=== PATIENT | female | born 1975 | race Caucasian/White ===

== ENCOUNTER 2020-01-28 16:33 | Emergency (ER) | payer MEDICARE, SELFPAY ==
[2020-01-28 17:08] VITALS: BP 127/77; PULSE 78; RESP 18; TEMP 36.7; O2SAT 92; BMI 24.7
== END 2020-01-28 19:36 | disposition left against medical advice (07) ==
LOC: ER 16:45
PROVIDERS: Emergency Provider Nurse Practitioner Family
DX: Z53.21 Procedure and treatment not carried out due to patient leaving prior to being seen by health care provider (principal)
CPT/HCPCS: 99281

== ENCOUNTER 2020-02-23 08:48 | Emergency (ER) | payer MEDICARE, MEDICAID, SELFPAY ==
[2020-02-23 08:54] VITALS: BMI 24.7
[2020-02-23 08:57] VITALS: BP 142/85; PULSE 59; RESP 18; TEMP 36.9; O2SAT 96
--- NOTE | 2020-02-23 09:01 | XR_ITS ---
WS: [id number] RIGHT KNEE: 3 VIEW(S) TECHNIQUE: AP, oblique(s) and lateral. HISTORY: knee pain COMPARISON: None available. Suspicious for nondisplaced lateral tibial plateau fracture. No significant joint space narrowing. Large suprapatellar joint effusion and soft tissue edema in the infrapatellar fat pad. XR/XR knee RT 3V* [id number] IMPRESSION: Highly suspicious for nondisplaced lateral tibial plateau fracture with large j oint effusion.
[2020-02-23 09:03] VITALS: O2SAT 97
--- NOTE | 2020-02-23 09:08 | W.ED.EXTPRO ---
HPI - Extremity Problem General: Chief complaint: Extremity Injury, Lower Stated complaint: R KNEE INJURY Time Seen by Provider: 02/23/20 08:50 History of Present Illness: HPI Narrative: 44-year-old female presents with complaint of right knee pain after falling off of the truck yesterday. She said she fell about 3 or 4 feet she denies any other injuries result of the fall she has been partial weightbearing since the fall she is used a crutch and can only done her . She took a Tylenol PM last night which did not seem to help very much. She denies any previous injury or surgery to that knee. MD Complaint: joint swelling and joint pain Onset (ago): day(s) (1) Pain Consistency: constant Location: right and knee Quality: aching and sharp Radiation: none Relieving factors: nothing Exacerbating factors: weight bearing, walking and palpation Associated symptoms: Reports no associated symptoms; Deny chest pain, fever(s) or rash Review of Systems Const: Denies: fever(s), chills, body aches, change in appetite, fatigue or malaise ENMT: Denies: throat pain, ear or mastoid pain, nasal discharge or nasal congestion Card: Denies: chest pain, edema, dyspnea on exertion or orthopnea Resp: Denies: dyspnea, productive cough or non-productive cough GI: Denies: abdominal pain, nausea, vomiting, hematemesis, coffee ground emesis, diarrhea, constipation, bloating, hematochezia or melena : Denies: flank pain, difficulty voiding, dysuria, urinary frequency or urinary urgency Skin/Breast: Denies: rash or pruritus PFSH ED PFSH: Medical History No active medical problems Surgical History History of hysterectomy Social History Smoking and tobacco status: current every day smoker Alcohol intake: never Physical Exam Const: COMMON NORMALS: no acute distress GENERAL APPEARANCE: cooperative and comfortable ORIENTATION/CONSCIOUSNESS: Yes awake, Yes oriented to person, Yes oriented to place and Yes oriented to time Neck/C-Spine: COMMON NORMALS: full ROM, no lymphadenopathy, supple and no JVD Resp: COMMON NORMALS: normal respiratory effort, No retractions, No use of accessory muscles and clear to auscultation bilaterally AUSCULTATION: clear to auscultation bilaterally Cardio: COMMON NORMALS: no JVD, regular rate, regular rhythm and No murmurs present (Cardio) RATE: regular rate RHYTHM: regular rhythm Extremity: NARRATIVE EXTREMITY EXAM: Right knee joint effusion. No obvious deformity. Effusion is palpable dorsalis pedis and posterior tibialis pulses are normal patient does not tolerate really any significant exam of the knee due to pain. So I cannot get any physical exam findings at this time she has a significant amount of muscle guarding x-ray is pending. Neuro: SENSORIUM/ORIENTATION: Yes oriented to person, Yes oriented to place and Yes oriented to time Course Vital Signs: Vital signs: Vital Signs Temperature 98.4 F 02/23/20 08:57 Pulse Rate 53 L 02/23/20 13:05 Respiratory Rate 18 02/23/20 13:05 Blood Pressure 119/76 02/23/20 13:05 Pulse Oximetry 93 02/23/20 13:05 MDM - Extremity (Nontraumatic) MDM Narrative: Medical decision making narrative: Tibial plateau fracture we will put her in a knee immobilizer crutches nonweightbearing pain medications as below make arrangements for her to see orthopedics for definitive care. Discharge Plan Discharge Patient Disposition: Home, Self-Care Clinical Impression: Closed fracture of right tibial plateau Condition: Stable Prescriptions: New hydrocodone-acetaminophen 5-325 mg tablet 1 tab PO Q6H PRN (Reason: pain) Qty: 25 RF: 0 Zofran 4 mg tablet 4 mg PO Q6H PRN (Reason: nausea and vomiting) Qty: 20 RF: 0 Discharge Orders: Discharge Order (Routine); Ordered 02/23/20 Ordered By: Ry Shay Discharge Diet: Usual diet Discharge Activity: Limit activity as instructed Patient Instructions: Crutch Instructions (ED), Knee Immobilizer (ED) Activity Restrictions/Additional Instructions: Case management will call with appointment to orthopedics. Continue with knee immobilizer and nonweightbearing on the right leg using crutches until you see orthopedics Discharge Date/Time: 02/23/20 13:10 Coding Level of Care Code ED Field Technician for Chg Fwd Exam Expanded Problem Focused
--- NOTE | 2020-02-23 09:10 | PC.NURSE ---
portable xray at bedside
[2020-02-23] MEDS: ketorolac 30 mg/mL INJ 60 MG IM (09:26)
--- NOTE | 2020-02-23 10:59 | CT_ITS ---
WS: [id number] CT RIGHT KNEE, NONCONTRAST HISTORY: tibial plateau fracture on plain film Technique: All CT scans at [facility] use at least one of these dose optimization techniq ues: automated exposure control; mA and/or kV adjustment per patient size (includes targeted exams wh ere dose is matched to clinical indication); or iterative reconstruction. DLP: 111.94 mGy.cm COMPARISON: Radiographs 02/23/2020. Nondisplaced comminuted fracture involving the lateral tibial plateau. Fracture extends along the tib ial plateau, anterior to posterior. No depression along the fracture line. Fracture does extend to th e articular surface. Fibular head is intact. There is a large amount of soft tissue swelling around the knee and a large lipohemarthrosis. CT/CT knee RT wo con* [id number] IMPRESSION: 1. Comminuted, nondisplaced, intra-articular fracture lateral tibial plateau. 2. Large lipohemarthrosis.
[2020-02-23] MEDS: ondansetron 2 mg/ML SDV 2 mL 4 MG IVP (11:32)
[2020-02-23] MEDS: morphine 4 mg/mL SDV 1 mL IV (11:35)
[2020-02-23 11:40] VITALS: BP 115/66; PULSE 59; O2SAT 93
--- NOTE | 2020-02-23 12:04 | PC.NURSE ---
back from ct
[2020-02-23 13:05] VITALS: BP 119/76; PULSE 53; RESP 18; O2SAT 93
--- NOTE | 2020-02-24 10:58 | DCPLANNER ---
indoor sports centre manager had message to schedule a follow up appointment for patient with ortho. indoor sports centre manager called the ortho clinic, spoke with Pat, gave clinic patients information. indoor sports centre manager was told that patients appointment information would be printed and reviewed. Clinic will call patient with appointment information.
--- NOTE | 2020-02-25 14:05 | DCPLANNER ---
Patient has a follow up appointment scheduled for 02.25.20 with ortho. Patient did attend the appointment.
== END 2020-02-23 13:10 | disposition home or self-care (01) ==
PROVIDERS: Emergency Provider Family Medicine
DX: S82.144A Nondisplaced bicondylar fracture of right tibia, initial encounter for closed fracture (principal); W17.89XA Other fall from one level to another, initial encounter; F17.210 Nicotine dependence, cigarettes, uncomplicated
CPT/HCPCS: 12345; 29530; 73562; 73700; 96372; 96374; 96375; 99281; 99283; E0114; J1885; J2270; J2405

== ENCOUNTER 2020-02-25 16:38 | Outpatient (CLI) | payer MEDICARE, MEDICAID, SELFPAY | END 2020-02-25 16:39 | disposition home or self-care (01) | LOC: SPT 16:39 | PROVIDERS: Visit Provider Specialist | DX: Z46.89 Encounter for fitting and adjustment of other specified devices (principal); S82.141D Displaced bicondylar fracture of right tibia, subsequent encounter for closed fracture with routine healing; X58.XXXD Exposure to other specified factors, subsequent encounter | CPT/HCPCS: 97760; L1832 ==

== ENCOUNTER → 2020-02-29 10:26 | Outpatient (BNVA) | payer MEDICARE, MEDICAID, SELFPAY | PROVIDERS: Visit Provider Specialist | DX: S82.141A Displaced bicondylar fracture of right tibia, initial encounter for closed fracture (principal); X58.XXXA Exposure to other specified factors, initial encounter | CPT/HCPCS: 73562 ==

== ENCOUNTER → 2020-03-21 08:36 | Outpatient (BNVA) | payer MEDICARE, MEDICAID, SELFPAY | PROVIDERS: Visit Provider Specialist | DX: S82.141A Displaced bicondylar fracture of right tibia, initial encounter for closed fracture (principal); X58.XXXA Exposure to other specified factors, initial encounter | CPT/HCPCS: 73562 ==

== ENCOUNTER 2020-03-30 08:03 | Outpatient (CLI) | payer MEDICARE, MEDICAID, SELFPAY ==
--- NOTE | 2020-03-30 14:15 | CT_ITS ---
WS: [id number] CT RIGHT KNEE, NONCONTRAST HISTORY: pain/fracture Technique: All CT scans at [facility] use at least one of these dose optimization techniq ues: automated exposure control; mA and/or kV adjustment per patient size (includes targeted exams wh ere dose is matched to clinical indication); or iterative reconstruction. DLP: 1161.21 mGycm COMPARISON: 02/23/2020 Previously described comminuted but nondisplaced fracture involving the lateral tibial plateau is aga in identified. There is increasing sclerosis and healing along the fracture line. Parts of the fractu re line are still evident. No depression of the tibial plateau. No fragmentation. No loose body in th e joint space. Patella remains in normal position. The large lipohemarthrosis has significantly impro gabriela. There still a [id number] residual suprapatellar joint effusion with improving layering fr om hemarthrosis. Mild persistent soft tissue edema. CT/CT knee RT wo con* [id number] IMPRESSION: 1. Partial healing of the lateral tibial plateau fracture. Portion of the frac ture line is still evident but there is no displacement. 2. Improving but persistent small to moderate suprapatellar joint effusion. 3. No loose bodies.
== END 2020-03-30 08:04 | disposition home or self-care (01) ==
LOC: RADWPI 08:06
PROVIDERS: Visit Provider Specialist
DX: S82.141A Displaced bicondylar fracture of right tibia, initial encounter for closed fracture (principal); X58.XXXA Exposure to other specified factors, initial encounter; J90 Pleural effusion, not elsewhere classified
CPT/HCPCS: 73700

== ENCOUNTER 2020-04-15 08:20 | Outpatient (CLI) | payer MEDICARE, MEDICAID, SELFPAY ==
--- NOTE | 2020-04-15 09:06 | CT_ITS ---
WS: [id number] CT scan of the right knee. Additional two-dimensional coronal and sagittal reconstruction was perform ed. 04/15/2020 Clinical Data: fracture Comparison: CT right knee, 03/30/2020 DLP: 1146.[address] scans at [facility] use at least one of these dose optimization techniques: automat ed exposure control; mA and/or kV adjustment per patient size (includes targeted exams where dose is matched to clinical indication); or iterative reconstruction. Findings: The lateral tibial plateau fracture shows further healing. There are sclerotic lines marking the frac ture there is no displacement. The patella and medial tibial plateau are unremarkable. The distal fem ur is normal. There is still fluid within the joint space. CT/CT knee RT wo con* [id number] Impression: 1. Almost total healing of fracture of right lateral tibial plateau. 2. Decrease in suprapatellar joint effusion.
== END 2020-04-15 08:21 | disposition home or self-care (01) ==
LOC: RADWPI 08:24
PROVIDERS: Visit Provider Specialist
DX: S82.141A Displaced bicondylar fracture of right tibia, initial encounter for closed fracture (principal); X58.XXXA Exposure to other specified factors, initial encounter
CPT/HCPCS: 73700

== ENCOUNTER → 2020-04-28 11:07 | Outpatient (BNVA) | payer MEDICARE, MEDICAID, SELFPAY | PROVIDERS: Visit Provider Specialist | DX: S82.141A Displaced bicondylar fracture of right tibia, initial encounter for closed fracture (principal) | CPT/HCPCS: 73562 ==

== ENCOUNTER 2020-05-04 06:00 | Outpatient (RCR) | payer MEDICARE, MEDICAID, SELFPAY | END 2020-06-01 23:59 | disposition home or self-care (01) | LOC: TPT 06:00 | PROVIDERS: Referring Provider Specialist; Visit Provider Specialist | DX: S82.141D Displaced bicondylar fracture of right tibia, subsequent encounter for closed fracture with routine healing (principal); X58.XXXD Exposure to other specified factors, subsequent encounter | CPT/HCPCS: 97110; 97161 ==

== ENCOUNTER 2020-06-02 06:00 | Outpatient (RCR) | payer MEDICARE, MEDICAID, SELFPAY | END 2020-07-02 23:59 | disposition home or self-care (01) | LOC: TPT 06:00 | PROVIDERS: Referring Provider Specialist; Visit Provider Specialist | DX: S82.141D Displaced bicondylar fracture of right tibia, subsequent encounter for closed fracture with routine healing (principal); X58.XXXD Exposure to other specified factors, subsequent encounter | CPT/HCPCS: 97110 ==

== ENCOUNTER → 2020-06-06 09:38 | Outpatient (BNVA) | payer MEDICARE, MEDICAID, SELFPAY | PROVIDERS: Visit Provider Specialist | DX: M25.561 Pain in right knee (principal) | CPT/HCPCS: 73560; 73565 ==

== ENCOUNTER 2020-06-10 12:27 | Outpatient (CLI) | payer MEDICARE, MEDICAID, SELFPAY ==
--- NOTE | 2020-06-10 13:00 | MR_ITS ---
WS: [id number] MRI RIGHT KNEE HISTORY: M25.561 Pain in right knee COMPARISON: 04/15/2020 and knee radiograph 06/06/2020 Anterior cruciate ligament: Slight increased signal throughout the ACL. Posterior band is very thin a nd probably partially torn. Posterior cruciate ligament: Intact. Medial collateral ligament: Intact. Posterior lateral corner structures: Intact. Medial menisci: Intact. Normal signal, size and shape. Lateral meniscus: Intact. Normal signal, size and shape. Extensor mechanism: Distal quadriceps tendon and patellar tendons are intact. Fluid and soft tissue: Small suprapatellar joint effusion. No Da Silva's cyst. Osseous and articular structures: Patellofemoral compartment: Normal. Medial compartment: No significant joint space narrowing. Minimal fraying along the cartilage. No ful l-thickness tear. Lateral compartment: Well-preserved. No meniscal tear. Linear increased T2 signal extends beneath the lateral tibial plateau to the metaphysis and also towards the posterior metaphysis. There is a heali ng mildly complex fracture noted on the T1 sequences. No displacement. MR/MR knee RT wo con* [id number] IMPRESSION: 1. Healing nondisplaced fracture involving the lateral tibial plateau with ext ension to the metaphysis. No displacement. 2. Increased signal within the ACL and the posterior band is very small calibe r may be torn. Partial ACL tear is suspected. 3. Small joint effusion. 4. No meniscal tears identified.
== END 2020-06-10 12:28 | disposition home or self-care (01) ==
LOC: RADSHAW 12:30
PROVIDERS: Visit Provider Specialist
DX: S82.144A Nondisplaced bicondylar fracture of right tibia, initial encounter for closed fracture (principal); X58.XXXA Exposure to other specified factors, initial encounter; M25.461 Effusion, right knee
CPT/HCPCS: 73721

== ENCOUNTER 2020-07-03 06:00 | Outpatient (RCR) | payer MEDICARE, MEDICAID, SELFPAY | END 2020-08-01 23:59 | disposition home or self-care (01) | LOC: TPT 06:00 | PROVIDERS: Referring Provider Specialist; Visit Provider Specialist | DX: S82.141D Displaced bicondylar fracture of right tibia, subsequent encounter for closed fracture with routine healing (principal); X58.XXXD Exposure to other specified factors, subsequent encounter | CPT/HCPCS: 97110 ==

== ENCOUNTER 2020-07-19 14:55 | Outpatient (CLI) | payer MEDICARE, MEDICAID, SELFPAY ==
--- NOTE | 2020-07-19 15:04 | MR_ITS ---
WS: [id number] MRI RIGHT KNEE NONCONTRAST TECHNIQUE: Axial PD, coronal PD fat sat, coronal PD, sagittal PD, and sagittal PD fat-sat images obta ined. CLINICAL INFORMATION: S82.141D - Displaced bicondylar fracture of right tibia, subsequent encounter f or closed fracture with routine healing COMPARISON: MRI June 10, 2020 FINDINGS: Distal quadriceps and patella tendons are intact. Small suprapatellar effusion. Anterior and posterio r cruciate ligaments appear intact. Mild thinning of the ACL. Lateral meniscus is normal in appearanc e. Medial meniscus is normal in appearance. No acute appearing meniscal tears. Mild chondromalacia patella. This is worse involving the lateral patella facet. No subchondral edema. Normal popliteal fossa. Medial and lateral collateral ligaments are intact. Mild chondromalacia invo lving the medial joint compartment with mild joint space narrowing. Healing nondisplaced fracture inv olving the lateral tibial plateau appears improved but persistent with persistent increased T2 signal abnormality. No depression lateral tibial plateau. This extends to the posterior lateral cortex unch anged. No other significant interval changes. MR/MR knee RT wo con* [id number] IMPRESSION: 1. Healing but persistent nondisplaced fracture involving the lateral tibial p lateau with persistent edema. No depression. This extends to the posterior late ral cortex unchanged. This appears improved but incompletely healed. 2. No other significant changes from previous. 3. Small suprapatellar effusion. 4. Anterior posterior cruciate ligaments appear intact. Thinning of the ACL un changed. 5. Mild chondromalacia patella worse involving the lateral patella facet.
== END 2020-07-19 14:56 | disposition home or self-care (01) ==
LOC: RADWPI 15:00
PROVIDERS: Visit Provider Specialist
DX: S82.141A Displaced bicondylar fracture of right tibia, initial encounter for closed fracture (principal); X58.XXXA Exposure to other specified factors, initial encounter; M22.41 Chondromalacia patellae, right knee; M25.461 Effusion, right knee
CPT/HCPCS: 73721

== ENCOUNTER 2020-08-02 06:00 | Outpatient (RCR) | payer MEDICARE, MEDICAID, SELFPAY | END 2020-09-01 23:59 | disposition home or self-care (01) | LOC: TPT 06:00 | PROVIDERS: Referring Provider Specialist; Visit Provider Specialist | DX: S82.141D Displaced bicondylar fracture of right tibia, subsequent encounter for closed fracture with routine healing (principal); X58.XXXD Exposure to other specified factors, subsequent encounter | CPT/HCPCS: 97110 ==

== ENCOUNTER → 2020-08-19 09:50 | Outpatient (BNVA) | payer MEDICARE, MEDICAID, SELFPAY | PROVIDERS: Visit Provider Nurse Practitioner Family | DX: J40 Bronchitis, not specified as acute or chronic (principal); Z20.828 Contact with and (suspected) exposure to other viral communicable diseases | CPT/HCPCS: 80053; 85025; 87400; 87635 ==

== ENCOUNTER 2020-09-02 06:00 | Outpatient (RCR) | payer MEDICARE, MEDICAID, SELFPAY | END 2020-10-02 23:59 | disposition home or self-care (01) | LOC: TPT 06:00 | PROVIDERS: PCP Family Medicine; Referring Provider Specialist; Visit Provider Specialist | DX: S82.141D Displaced bicondylar fracture of right tibia, subsequent encounter for closed fracture with routine healing (principal); X58.XXXD Exposure to other specified factors, subsequent encounter | CPT/HCPCS: 97110 ==

== ENCOUNTER 2020-09-05 16:19 | Outpatient (CLI) | payer MEDICARE, MEDICAID, SELFPAY | END 2020-09-05 16:20 | disposition home or self-care (01) | LOC: SPT 16:20 | PROVIDERS: PCP Family Medicine; Visit Provider Specialist | DX: Z46.89 Encounter for fitting and adjustment of other specified devices (principal); S82.141A Displaced bicondylar fracture of right tibia, initial encounter for closed fracture; X58.XXXA Exposure to other specified factors, initial encounter | CPT/HCPCS: 97760; L1812 ==

== ENCOUNTER → 2021-09-29 13:17 | Outpatient (BNVA) | payer MEDICARE, MEDICAID, SELFPAY | PROVIDERS: PCP Family Medicine; Visit Provider Nurse Practitioner Family | DX: Z20.822 Contact with and (suspected) exposure to COVID-19 (principal); J40 Bronchitis, not specified as acute or chronic; R05.9 Cough, unspecified | CPT/HCPCS: 87635 ==

== ENCOUNTER → 2021-11-06 17:05 | Outpatient (BNVA) | payer MEDICARE, MEDICAID, SELFPAY | PROVIDERS: PCP Family Medicine; Visit Provider Family Medicine | DX: R05.9 Cough, unspecified (principal) | CPT/HCPCS: 71046 ==

== ENCOUNTER → 2022-01-19 10:06 | Outpatient (BNVA) | payer MEDICARE, MEDICAID, SELFPAY | PROVIDERS: PCP Family Medicine | DX: J06.9 Acute upper respiratory infection, unspecified (principal); R05.9 Cough, unspecified; J40 Bronchitis, not specified as acute or chronic; R05.8 Other specified cough | CPT/HCPCS: 71046; 80053; 85025 ==

== ENCOUNTER → 2022-07-11 15:03 | Outpatient (BNVA) | payer MEDICARE, MEDICAID, SELFPAY | PROVIDERS: PCP Family Medicine; Visit Provider Family Medicine | DX: R05.8 Other specified cough (principal) | CPT/HCPCS: 71046; 87400; 87426 ==

== ENCOUNTER → 2022-08-07 13:54 | Outpatient (BNVA) | payer MEDICARE, MEDICAID, SELFPAY | PROVIDERS: PCP Family Medicine; Visit Provider Nurse Practitioner Family | DX: J18.9 Pneumonia, unspecified organism (principal) | CPT/HCPCS: 71046; 80053; 85025 ==

== ENCOUNTER → 2022-10-16 11:00 | Outpatient (BNVA) | payer MEDICARE, MEDICAID, SELFPAY | PROVIDERS: PCP Family Medicine; Visit Provider Nurse Practitioner Family | DX: R05.8 Other specified cough (principal); J02.9 Acute pharyngitis, unspecified; Z20.822 Contact with and (suspected) exposure to COVID-19 | CPT/HCPCS: 87071; 87400; 87426; 87880 ==